=== PATIENT | female | born 1970 | race Caucasian/White ===

== ENCOUNTER 2017-11-12 11:01 | Emergency (ER) | payer OTHER ==
[2017-11-12 11:20] VITALS: RESP 16
[2017-11-12] MEDS ORDERED: ACETAMINOPHEN 500 MG TAB PO ONE (11:33)
--- NOTE | 2017-11-12 11:37 | EDPHY ---
H & P Time Seen by Provider: 11/12/17 11:22 HPI/ROS: Chief complaint. Cough fever sore throat HPI. 46-year-old female presents emergency department with 2 day history of cough, fever, sore throat. Achy. She also has pain to the left shoulder blade that is worse with deep breathing and cough. She feels like she can't take full deep breath. Up she just drove back from [place] E. Unknown exposure to Infectious Disease. No abdominal pain or vomiting or diarrhea. No unusual leg pain or swelling. She tells me she has already had flu this year. She is concerned about strep throat. ROS Constitutional. Fever Eyes. no problems with vision ENT. Sore throat congestion Cardiovascular. no chest pain Respiratory. Pain left scapula deep breathing and can't take full deep breath. Also with cough Abdominal. no abdominal pain, no nausea/vomiting, no diarrhea . no problems urinating MS. Left scapular pain; achy Skin. no rash Lymph. no swollen glands Neuro. no headache, no dizziness, no difficulty walking or with speech Past Medical/Surgical History: Hypothyroid Social History: , nonsmoker, no alcohol Smoking Status: Never smoked Physical Exam: General Appearance: Alert well-developed female moderate distress vital signs show temp 38.2degrees Eyes: Pupils equal and round no pallor or injection. ENT, tympanic membranes normal feet. Pharynx slightly injected without exudate. Mucous membranes are moist Respiratory: There are no retractions, lungs are clear to auscultation. Cardiovascular: Regular rate and rhythm. Gastrointestinal: Abdomen is soft and nontender, no masses, bowel sounds normal. Neurological: Awake and alert, sensory and motor exams grossly normal. Skin: Warm and dry, no rashes. Musculoskeletal: Neck is supple nontender. Area where the patient shows me she has pain around the left scapula is not tender to palpation Extremities symmetrical, full range of motion. Psychiatric: Patient is oriented X 3, there is no agitation. Constitutional: Initial Vital Signs Temperature (C) 38.2 C 11/12/17 11:15 Heart Rate 96 11/12/17 11:15 Respiratory Rate 16 11/12/17 11:15 Blood Pressure 106/72 11/12/17 11:15 O2 Sat (%) 95 11/12/17 11:15 O2 Delivery Mode Room Air Allergies/Adverse Reactions: amoxicillin [From Augmentin] Allergy (Verified 11/12/17 11:21) clavulanic acid [From Augmentin] Allergy (Verified 11/12/17 11:21) Home Medications: Medication Instructions Recorded Levothyroxine [Synthroid 125 mcg 125 mcg PO DAILY06 11/12/17 (*)] Medical Decision Making - Diagnostics Imaging Results: Imaging Impressions Chest X-Ray 11/12/17 11:34 Impression: 1. Mild airways disease. No pneumonia. 2. Likely biapical scarring. Chest x-ray interpreted by me is negative for pneumonia. Procedures: Strep screen, chest x-ray, D-dimer. Tylenol 1000 mg given in the emergency department ED Course/Re-evaluation: Strep screen is negative Re-evaluation 12:20 p.m.. Patient is stable. She and I discussed imaging and lab results. We discussed the mildly elevated D-dimer. We discussed pulmonary embolus, treatment plan for this. We discussed risks of not investigating this further. Because of insurance reasons and cost she would prefer to wait 24 hr and treat herself symptomatically. She understands to return for worsening chest or back pain or shortness of breath. I told her that she and her daughter symptoms are likely influenza Differential Diagnosis: This is likely influenza. We also considered strep. We considered pneumonia. Due to the patient's driving back from [place] recently considered pulmonary embolus. Her D-dimer is mildly elevated and I suspect is probably related to influenza and not PE. The patient understands I cannot rule out PE without CT. - Data Points Laboratory Results: 11/12/17 11/12/17 11/12/17 Unknown 11:40 11:20 D-Dimer 0.62 ug/mLFEU H ug/mLFEU (0.00-0.50) Group A Strep Screen NEGATIVE (NEGATIVE) Group A Strep DNA Pending Medications Given: Discontinued Medications Acetaminophen (Tylenol) 1,000 mg PO EDNOW ONE Stop: 11/12/17 11:34 Last Admin: 11/12/17 11:39 Dose: 1,000 mg Departure - Departure Disposition: Home, Routine, Self-Care Clinical Impression: Influenza Condition: Good Instructions: Influenza (ED) Additional Instructions: Drink plenty of fluids and stay hydrated. Tylenol 1000 mg every 4-6 hours, ibuprofen 600 mg every 6 hr as needed for achiness and fever. Return for worsening symptoms. Recheck in 1 day for worsening back pain or breathing. Recheck in 2-3 days if not slowly improving Referrals: JEANETTE RICHARDSON [Primary Care Provider] - 2-3 days, if not improved
[2017-11-12 12:48] VITALS: BP 108/65; PULSE 93; TEMP 99.7; O2SAT 92
== END 2017-11-12 12:48 | disposition home or self-care (01) ==
LOC: CED 11:01
DX: J11.1 Influenza due to unidentified influenza virus with other respiratory manifestations (principal)
CPT/HCPCS: 71020-PO; 85378-PO; 87880-PO